=== PATIENT | female | born 1960 | race Caucasian/White ===

== ENCOUNTER → 2021-01-05 | Outpatient (CLI) | payer BC ==
[~2021-01-05] MED LIST: PROHANCE 279.3MG/ML 15ML VIAL As Ordered ONE
--- NOTE | 2021-01-05 20:14 | REPVR ---
PROCEDURE INFORMATION: Exam: MR Head Without and With Contrast; Internal Auditory Canals Exam date and time: 01/05/2021 6:06 PM Age: 60 years old Clinical indication: Patient HX: Lt sided tinnitus, with mass in hypotympanum, possible glomus; Additional info: D18.00 hemangioma TECHNIQUE: Imaging protocol: MR of the head without and with intravenous contrast. Exam focused on the internal auditory canals. Contrast material: PROHANCE; Contrast volume: 12 ml; Contrast route: INTRAVENOUS (IV); COMPARISON: No relevant prior studies available. FINDINGS: Brain: No acute infarct identified on the diffusion-weighted imaging. No evidence of brain parenchymal edema or intracranial mass effect. No significant white matter disease. No enhancing brain pathology. Ventricles: No ventriculomegaly. Mastoid air cells: Unremarkable. No effusions. Internal auditory canals: No evidence of IAC mass. Other: There is a 1.3 x 1.1 x 1.6 cm enhancing mass in the jugular foramen, image 14 series 1201. The mass is abutting the vertical petrous segment of the left ICA. Superiorly, the mass may involve the floor of the middle ear cavity/hypotympanum. Some suggestion of flow voids on the T2 weighted imaging. On the postcontrast imaging, there is contrast enhancement, though not markedly avid. IMPRESSION: 1. 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 2. Recommend a CT temporal bones for correlation. Electronically signed by: Kezia Vu On 01/05/2021 20:14:24 PM
== END ==
LOC: M RAD 16:49
PROVIDERS: ATTEND Otolaryngology
DX: D18.00 Hemangioma unspecified site (principal); R22.1 Localized swelling, mass and lump, neck
CPT/HCPCS: 70553; A9576

== ENCOUNTER → 2021-07-21 | Outpatient (CLI) | payer BC ==
--- NOTE | 2021-07-22 13:02 | REPVR ---
PROCEDURE INFORMATION: Exam: MR Head Without and With Contrast Exam date and time: 07/21/2021 2:00 PM Age: 61 years old Clinical indication: Left glomus tumor; Prior surgery; Surgery type: Gamma knife; Additional info: Hemangioma unspecified site TECHNIQUE: Imaging protocol: MR of the head without and with intravenous contrast. Contrast material: PROHANCE; Contrast volume: 12 ml; Contrast route: INTRAVENOUS (IV); COMPARISON: MRI-Brain W/O FOLL BY WITH 01/05/2021 5:35 PM FINDINGS: Brain: Examination of the brain parenchyma demonstrates normal morphology and signal intensity.No acute infarction, midline shift or acute hemorrhage is seen. No acute intracranial abnormality is identified.There is no abnormal diffusion weighted signal intensity to suggest an acute ischemic event.The cortical escobedo / white matter interfaces are preserved throughout the brain.Intracranial flow voids are well maintained. Cerebral ventricles: The ventricular system is not dilated and is appropriate for the patient's age. Bones/joints: Unremarkable. Paranasal sinuses: Normal as visualized. No acute sinusitis. Mastoid air cells: Normal as visualized. No mastoid effusion. Internal auditory canals: The 7th and 8th cranial nerves are normal in thickness and signal intensity bilaterally. No discrete mass or abnormal enhancement is seen to suggest vestibular schwannoma or acoustic neuroma. Orbital cavity: Unremarkable. Soft tissues: Unremarkable. Vasculature: Examination again demonstrates an approximately 1.6 x 1.4 x 1.2 cm mild heterogeneously enhancing mass in the left jugular foramen, best appreciated on series 07/25/2000 image 19. This appears isointense hyperintense on T1, mildly hyperintense on T2 and FLAIR images. The mass is located in the left jugular foramen posterior to the vertical petrous segment of the left internal carotid artery. Overall, compared to the previous study, there has been no significant interval change in the size or appearance the mass since the previous study. 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 Clinical correlation and correlation with surgical history is recommended. IMPRESSION: Examination again demonstrates an approximately 1.6 x 1.4 x 1.2 cm mild heterogeneously enhancing mass in the left jugular foramen, best appreciated on series 07/25/2000 image 19. This appears isointense hyperintense on T1, mildly hyperintense on T2 and FLAIR images. The mass is located in the left jugular foramen posterior to the vertical petrous segment of the left internal carotid artery. Overall, compared to the previous study, there has been no significant interval change in the size or appearance the mass since the previous study. 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 Clinical correlation and correlation with surgical history is recommended. Electronically signed by: Basilio Blanca On 07/22/2021 13:01:52 PM
== END ==
LOC: M RAD 12:31
PROVIDERS: ATTEND Radiology Radiation Oncology
DX: D18.09 Hemangioma of other sites (principal)
CPT/HCPCS: 70553; A9576

== ENCOUNTER → 2022-08-12 | Outpatient (CLI) | payer BC | LOC: M PLARAD 08:19 | PROVIDERS: ATTEND Otolaryngology | DX: D44.7 Neoplasm of uncertain behavior of aortic body and other paraganglia (principal) ==